=== PATIENT | male | born 1980 | race Caucasian/White ===

== ENCOUNTER 2023-09-04 23:59 | Emergency (ER) | payer SELFPAY ==
[~2023-09-04] VITALS: Ht 177.8 cm; Wt 77.1 kg
[2023-09-05] VITALS: BP 138/100; PULSE 75; RESP 20; TEMP 97; O2SAT 99
[2023-09-05 00:26] VITALS: O2SAT 97
[2023-09-05 01:58] VITALS: O2SAT 99
[2023-09-05] MEDS ORDERED: ONDANSETRON 4 MG ODT PO ONE (03:40)
[2023-09-05] MEDS ORDERED: ONDANSETRON 4 MG/2 ML VIAL IVP ONE (03:40)
[2023-09-05] MEDS ORDERED: NACL 0.9% 1,000 ML IV ONE (03:40)
[2023-09-05] MEDS ORDERED: ONDANSETRON 4 MG/2 ML VIAL ONE (03:41)
[2023-09-05 04:15] VITALS: O2SAT 98
[2023-09-05 07:42] VITALS: O2SAT 98
[2023-09-05 08:06] VITALS: BP 140/98; PULSE 85; RESP 18; TEMP 98.4; O2SAT 99
== END 2023-09-05 08:06 | disposition home or self-care (01) ==
LOC: MED 23:59
DX: F10.129 Alcohol abuse with intoxication, unspecified (principal); R11.10 Vomiting, unspecified; Y90.9 Presence of alcohol in blood, level not specified
CPT/HCPCS: 96361; 96374; 99285; J2405; J7030; Q0162